=== PATIENT | female | born 1970 | race Caucasian/White ===

== ENCOUNTER → 2016-06-16 | Outpatient (REF) ==
[~2016-06-16] MED LIST: MULTIPLE VITAMI1 CAP PO; PRENATAL VITAMI1 TA5 PO; ZOFRAN 4MG T4 MG/TAB PO
== END ==
LOC: ZLAB.WCH 12:33
DX: Z01.89 Encounter for other specified special examinations (principal)

== ENCOUNTER → 2017-07-19 | Outpatient (REF) | LOC: ZLAB.WCH 10:19 | DX: Z01.89 Encounter for other specified special examinations (principal) ==

== ENCOUNTER → 2018-07-14 | Outpatient (REF) | LOC: ZLAB.WCH 09:11 | DX: Z01.89 Encounter for other specified special examinations (principal) ==

== ENCOUNTER → 2019-08-24 | Outpatient (CLI) | payer BC | LOC: MC.RAD 08:30 | DX: R92.0 Mammographic microcalcification found on diagnostic imaging of breast (principal) ==

== ENCOUNTER → 2020-12-26 | Outpatient (CLI) | payer BC | LOC: MC.RAD 09:44 | DX: R92.0 Mammographic microcalcification found on diagnostic imaging of breast (principal); Z98.82 Breast implant status; Z98.890 Other specified postprocedural states ==

== ENCOUNTER → 2021-06-27 | Outpatient (CLI) | payer BC | LOC: MC.RAD 09:52 | DX: R92.0 Mammographic microcalcification found on diagnostic imaging of breast (principal); Z98.890 Other specified postprocedural states ==

== ENCOUNTER → 2022-01-02 | Outpatient (CLI) | payer BC | LOC: MC.RAD 12-04 13:30 | DX: Z12.31 Encounter for screening mammogram for malignant neoplasm of breast (principal) ==

== ENCOUNTER → 2023-01-08 | Outpatient (CLI) | payer BC | LOC: MC.RAD 14:34 | DX: Z12.31 Encounter for screening mammogram for malignant neoplasm of breast (principal) ==